=== PATIENT | female | born 1970 | race Caucasian/White ===

== ENCOUNTER → 2016-06-26 | Outpatient (REF) | payer BC, MEDICARE ==
[2016-06-26 10:46] LABS: BASOPHILS % (AUTO) 0 % (0-2); EOSINOPHILS # (AUTO) 0.2 10^3uL; EOSINOPHILS % (AUTO) 2 % (0-4); LYMPHOCYTES # (AUTO) 1.7 X10^3; MEAN CORPUSCULAR HGB CONC 33.5 g/dL (31.0-37.0); MEAN CORPUSCULAR VOLUME 94 FL (80-100); MEAN PLATELET VOLUME 8.9 FL (6.0-9.5); MONOCYTES # (AUTO) 0.7 X10^3; MONOCYTES % (AUTO) 8 % (3-11); NEUTROPHILS # (AUTO) 6.6 X10^3; NEUTROPHILS % (AUTO) 71 % (51-67); PLATELET COUNT 408 10^3uL (150-450); WHITE BLOOD COUNT 9.33 10^3uL (4.0-11.0)
[2016-06-26 10:48] LABS: MEAN CORPUSCULAR HEMOGLOBIN 31.3 PG (26.0-34.0)
[2016-06-27 08:26] LABS: ALBUMIN 3.7 g/dL (3.4-5.0); ANION GAP 17.3 MEQ/L (3-15); CALCULATED IONIZED CALCIUM 3.8 mg/dL (3.8-4.6); TOTAL PROTEIN 7.5 g/dL (6.4-8.5)
== END ==
LOC: LAB 10:04
PROVIDERS: ATTEND Family Medicine
DX: E78.2 Mixed hyperlipidemia (principal); I63.8 Other cerebral infarction; R25.8 Other abnormal involuntary movements; G40.804 Other epilepsy, intractable, without status epilepticus; I77.71 Dissection of carotid artery
CPT/HCPCS: 80053; 80061; 80185; 84443; 85025; 85610

== ENCOUNTER → 2016-09-04 | Outpatient (REF) | payer BC, MEDICARE | LOC: LAB 11:19 | PROVIDERS: ATTEND Family Medicine | DX: R25.8 Other abnormal involuntary movements (principal); G43.819 Other migraine, intractable, without status migrainosus; I77.71 Dissection of carotid artery; R74.8 Abnormal levels of other serum enzymes; G40.804 Other epilepsy, intractable, without status epilepticus | CPT/HCPCS: 80185; 82306; 83970 ==

== ENCOUNTER → 2016-09-19 | Outpatient (REF) | payer BC, MEDICARE ==
[2016-09-19 15:47] LABS: ALBUMIN 3.8 g/dL (3.4-5.0); ANION GAP 14.7 MEQ/L (3-15); CALCULATED IONIZED CALCIUM 3.7 mg/dL (3.8-4.6); TOTAL PROTEIN 7.3 g/dL (6.4-8.5)
== END ==
LOC: LAB 14:56
PROVIDERS: ATTEND Family Medicine
DX: I77.71 Dissection of carotid artery (principal); R74.8 Abnormal levels of other serum enzymes; R25.8 Other abnormal involuntary movements; G40.804 Other epilepsy, intractable, without status epilepticus
CPT/HCPCS: 80053; 82977; 83970

== ENCOUNTER → 2016-09-26 | Outpatient (CLI) | payer BC, MEDICARE ==
--- NOTE | 2016-09-26 08:35 | Diagnostic Imaging Report ---
PROCEDURE: US Abdomen, limited. TECHNIQUE: Multiple realtime grayscale images were obtained over the abdomen in various projections. INDICATION: Elevated GGT levels COMPARISON STUDIES: None FINDINGS: Right upper quadrant ultrasound demonstrates a 1.5 cm hypoechoic lesion in the right lobe of the liver inferiorly suggestive of a hemangioma. A three-phase CT scanning could be helpful for further evaluation. Liver is otherwise normal. No duct dilatation is present. The gallbladder is absent. Common bile duct is normal caliber measuring 2 mm. Normal antegrade flow is seen in the portal vein. Pancreas was not imaged. Visualized portions of the right kidney appear normal. IMPRESSION: 1. There is a 1.5 cm hepatic mass consistent with a hemangioma. A tumor is less likely. Consider three-phase CT scanning for further evaluation. 2. Cholecystectomy changes with no duct dilatation. Dictated by: Dictated on workstation # [id number]
== END ==
LOC: RAD 07:24
PROVIDERS: ATTEND Family Medicine
DX: R74.8 Abnormal levels of other serum enzymes (principal)
CPT/HCPCS: 76705

== ENCOUNTER → 2016-10-10 | Outpatient (CLI) | payer BC, MEDICARE ==
--- NOTE | 2016-10-10 11:46 | Diagnostic Imaging Report ---
PROCEDURE: CT of the abdomen with and without contrast and CT of the pelvis with contrast. TECHNIQUE: Precontrast acquisitions were acquired through the abdomen. Multiple contiguous axial images were obtained through the abdomen and pelvis after administration of intravenous contrast. INDICATION: Elevated serum GGT level, liver nodule. COMPARISON STUDY: Ultrasound from September 26. FINDINGS: In the late arterial phase, there is a 1.5 cm hypodense nodule in the inferior aspect of the liver. This is minimally hypodense on noncontrast studies and is not well imaged. On the arterial phase, this does have peripheral filling and enhancement and completely fills on delayed images. The findings are consistent with a hemangioma. No other hepatic masses are present. The lung bases are clear. The gallbladder, spleen, pancreas, adrenal glands, and kidneys appear normal. No ascites, free air, or abnormal adenopathy is present. The urinary bladder is normal. The uterus is absent. The appendix is not identified and is probably absent. No inflammatory changes are present. There is some mild calcification in the right common iliac artery. The left ovary is still present with a 14 mm cyst. No ascites, free air, or abnormal adenopathy is present. The osseous structures are normal. IMPRESSION: 1. There is a 1.5 cm hemangioma in the liver. 2. There is a 1.4 cm left ovarian cyst. 3. Minimal calcifications are present in the right common iliac artery. This is slightly unusual for a female of this age. Dictated by: Dictated on workstation # [id number]
== END ==
LOC: RAD 08:32
PROVIDERS: ATTEND Family Medicine
DX: R74.8 Abnormal levels of other serum enzymes (principal); K76.89 Other specified diseases of liver; N83.292 Other ovarian cyst, left side
CPT/HCPCS: 74178; Q9967

== ENCOUNTER → 2016-10-29 | Outpatient (CLI) | payer BC, MEDICARE ==
--- NOTE | 2016-10-29 16:55 | Diagnostic Imaging Report ---
INDICATION: Right-sided rib pain after falling last week. DISCUSSION: Three views of the right ribs were obtained, no comparison. The visualized heart and lungs are normal. No pneumothorax. No displaced rib fracture or other acute osseous abnormality identified. IMPRESSION: 1. Negative right ribs. Dictated by: Dictated on workstation # [id number]
== END ==
LOC: RAD 14:52
PROVIDERS: ATTEND Family Medicine
DX: R07.81 Pleurodynia (principal)
CPT/HCPCS: 71100